=== PATIENT | female | born 1980 | race Caucasian/White ===

== ENCOUNTER 2021-05-24 19:16 | Emergency (ER) | payer BC ==
[~2021-05-24] VITALS: Ht 167.6 cm; Wt 53.5 kg
--- NOTE | 2021-05-24 19:47 | NUR ---
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
--- NOTE | 2021-05-24 19:51 | NUR ---
Dr. Salomon at bedside for mse.
[2021-05-24] MEDS ORDERED: LIDOCAINE 1%-EPI 1:100,000 20 ML VIAL IJ ONE (20:00)
[2021-05-24] MEDS ORDERED: SODIUM BICARBONATE 4.2 % (NEUT) 5 ML VIAL IJ ONE (20:00)
[2021-05-24] MEDS ORDERED: TDAP DIPH,PERTUSS,TET VAC/PF 0.5 ML DISP.SYRIN IM ONE ×2 (20:00→20:08)
[2021-05-24] MEDS ORDERED: AMOX-430 PO (20:19)
[2021-05-24] MEDS ORDERED: AMOXICILLIN-CLAVUL 875-125MG TABLET ONE (20:24)
[2021-05-24] MEDS ORDERED: AMOXICILLIN-CLAVUL 875-125MG TABLET PO ONE (20:30)
--- NOTE | 2021-05-24 20:38 | NUR ---
Patient discharged to home in stable condition. Written and verbal after care instructions given. Patient verbalizes understanding of instructions. Stressed follow up or return to ER for worsening s/s. Pt. walks with steady gait. All belongings taken. No signs of distress. Pt. understands to return in 2 days for wound check.
[2021-05-24 20:39] VITALS: BP 112/65
== END 2021-05-24 20:40 | disposition home or self-care (01) ==
LOC: ER 19:19
DX: S61.412A Laceration without foreign body of left hand, initial encounter (principal); W54.0XXA Bitten by dog, initial encounter; Y93.89 Activity, other specified; Y92.89 Other specified places as the place of occurrence of the external cause; Y99.8 Other external cause status; Z91.041 Radiographic dye allergy status
CPT/HCPCS: 90715; A4217; A4663

== ENCOUNTER 2021-05-27 06:35 | Emergency (ER) | payer BC ==
[~2021-05-27] VITALS: Ht 167.6 cm; Wt 53.5 kg
[~2021-05-27 06:35] MED LIST: AMOX-430 PO
--- NOTE | 2021-05-27 06:52 | NUR ---
MD Valles in room to do MSE.
[2021-05-27] MEDS ORDERED: BACITRACIN ZINC OINT 15 GM TUBE TOP STA (07:01)
[2021-05-27] MEDS ORDERED: BACITRACIN ZINC OINT 15 GM TUBE ONE (07:06)
[2021-05-27 07:18] VITALS: BP 106/72
--- NOTE | 2021-05-27 07:18 | NUR ---
Patient discharged to home in stable condition. Written and verbal after care instructions given. Patient verbalizes understanding of instructions. Stressed follow up or return to ER for worsening s/s. Patient ambulates with steady gait, V/S stable, left with all personal belongings.
== END 2021-05-27 07:41 | disposition home or self-care (01) ==
LOC: ER 06:43
DX: S61.412D Laceration without foreign body of left hand, subsequent encounter (principal); W45.8XXD Other foreign body or object entering through skin, subsequent encounter; Z91.041 Radiographic dye allergy status
CPT/HCPCS: A4663